=== PATIENT | female | born 1990 | race Caucasian/White ===

== ENCOUNTER 2017-01-18 13:49 | Outpatient (CLI) | payer MEDICAID ==
--- NOTE | 2017-01-18 18:30 | XRAY Report ---
THREE-VIEW LUMBAR SPINE: 01/18/2017 CLINICAL INDICATION: Back pain. FINDINGS: AP, lateral, coned-down views of the lumbar spine demonstrate dextroscoliosis, measuring 2 7 degrees between the pedicles of L1 and L5. There is no evidence of compression fracture. The suzie l gas pattern appears unremarkable. IMPRESSION: DEXTROSCOLIOSIS OF THE LUMBAR SPINE. JOB #: [id number] EXT JOB #:[id number]
== END 2017-01-18 13:50 | disposition home or self-care (01) ==
LOC: DI.S 13:49
PROVIDERS: ATTEND Nurse Practitioner Family
DX: M41.86 Other forms of scoliosis, lumbar region (principal)
CPT/HCPCS: 72100